=== PATIENT | female | born 1990 | race Caucasian/White ===

== ENCOUNTER 2019-11-07 22:13 | Emergency (ER) | payer OTHER, SELFPAY ==
--- OUTSIDE RECORDS SUMMARY | 2019-11-07 22:18 | XMS REPORT | Continuity of Care Document ---
:1990 Author Organization [facility] t Address [address] [place] [address] Dr. Weldon [address] [place] [id number] Care Team Providers Name Role Phone Unavailable Unavailable Unavailable Problems This patient has no known problems. Allergies, Adverse Reactions, Alerts This patient has no known allergies or adverse reactions. Medications This patient has no known medications. Procedures This patient has no known procedures. Results This patient has no known results.
[2019-11-07] MEDS ORDERED: HYDROCODONE/APAP 10/325 TAB ONE (23:11)
[2019-11-07] MEDS ORDERED: LIDOCAINE 1% MPF 30 ML VIAL ONE (23:12)
--- NOTE | 2019-11-07 23:46 | ER ---
Nurse's Notes [facility] Name: Braden Guy Age: 29 yrs Sex: Female : 1990 Arrival Date: 11/07/2019 Time: 22:22 Bed 13 Private MD: Diagnosis: Cutaneous abscess of right upper limb Presentation: 11/06 22:29 Chief complaint: Patient states: "My arm hurts so bad and is sore to the touch, the jd3 pain is spreading all the way through my vein. Then i got super dizzy, felt like i couldn't see. started about two hours ago. I also went to the feed store and got some antibiotics to try to help heal it. My muscle and everything around it hurts". Coronavirus screen: At this time, the client does not indicate any symptoms associated with coronavirus-19. Ebola Screen: Patient negative for fever greater than or equal to 101.5 degrees Fahrenheit, and additional compatible Ebola Virus Disease symptoms. Initial Sepsis Screen: Does the patient meet any 2 criteria? No. Patient's initial sepsis screen is negative. Does the patient have a suspected source of infection? No. Patient's initial sepsis screen is negative. Risk Assessment: Do you want to hurt yourself or someone else? Patient reports no desire to harm self or others. Onset of symptoms was November 05, 2019. 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 - Social history:: Smoking status: Patient reports the use of cigarette tobacco products, smokes .25 packs per day. Screenin:43 Abuse screen: Denies threats or abuse. Denies injuries from another. Nutritional mg2 screening: No deficits noted. Tuberculosis screening: No symptoms or risk factors identified. Fall Risk None identified. Assessment: 22:43 General: Appears in no apparent distress. comfortable, Behavior is calm, cooperative. mg2 Pain: Complains of pain in right arm. 23:55 Reassessment: Patient and/or family updated on plan of care and expected duration. Pain ea level reassessed. Patient is alert, oriented x 3, equal unlabored respirations, skin warm/dry/pink. Discharge instruction given to patient, verbalized the understanding of instruction. Pt left ED ambulatory, at facility to take pt home. Vital Signs: 22:34 BP 109 / 65; Pulse 95; Resp 12; Temp 98.1; Pulse Ox 100% ; Weight 68.04 kg; Height 5 jd3 ft. 1 in. (154.94 cm); Pain 10/10; 23:57 BP 110 / 68; Pulse 80; Resp 18; Pulse Ox 98% ; ea 22:34 Body Mass Index 28.34 (68.04 kg, 154.94 cm) jd3 ED Course: 22:22 Patient arrived in ED. bg2 22:33 Triage completed. jd3 22:36 Arm band placed on. jd3 22:37 Alex Aquino PA is PHCP. [facility] 22:37 Simon Prieto MD is Attending Physician. [facility] 22:40 Erasmo Regalado RN is Primary Nurse. mg2 23:00 Patient has correct armband on for positive identification. Placed in gown. Bed in low ea position. Call light in reach. Side rails up X 1. 23:42 Assist provider with I \\T\\ D: of an abscess on right arm Set up I\\T\\D tray. Performed by mg 2 Alex GREEN Wound packed. iodoform gauze, Dressing with 4X4s, tape Patient tolerated well. Patient did not have IV access during this emergency room visit. Administered Medications: 23:04 Drug: Rhame 10 mg-325 mg 1 tabs Route: PO; ea 23:50 Follow up: Response: No adverse reaction; Pain is decreased ea 23:34 Drug: Lidocaine (1 %) 20 ml {Note: medication administered by provider .} Volume: 20 ea ml; Route: Infiltration; Outcome: 23:46 Discharge ordered by . [facility] 23:54 Discharged to home ambulatory, with family. ea 23:54 Condition: stable 23:54 Discharge instructions given to patient, Instructed on discharge instructions, follow up and referral plans. medication usage, Demonstrated understanding of instructions, follow-up care, medications, Prescriptions given X 3. 23:56 Patient left the ED. ea Signatures: Alex Aquino PA PA jmm Glass, Brittany 2 Mariana Lopes RN RN Jason Kim RN RN jd3 Erasmo Regalado RN VIDAL mg2
--- NOTE | 2019-11-07 23:46 | EDPHYS ---
Physician Documentation [facility] Name: Braden Guy Age: 29 yrs Sex: Female : 1990 Arrival Date: 11/07/2019 Time: 22:22 Bed 13 Private MD: ED Physician Simon Prieto HPI: 11/06 22:40 This 29 yrs old Female presents to ER via Ambulatory with complaints of jmm Dizziness, Insect Bite. 22:40 The patient presents with an abscess of the right arm. Possible cause(s): insect sting. jmm Associated signs and symptoms: Pertinent negatives: fever. Modifying factors: the symptoms are alleviated by nothing, the symptoms are aggravated by pressure, squeezing the lesion and expressing the contents. This is a 29 year old female with a history of anxiety that presents to the ED with complaints of an area of redness which she noticed yesterday. Swelling worsened today with complaints of weakness and fatigue. . 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 - Social history:: Smoking status: Patient reports the use of cigarette tobacco products, smokes .25 packs per day. ROS: 22:40 Constitutional: Negative for fever, chills, and weight loss, Cardiovascular: Negative jmm for chest pain, palpitations, and edema, Respiratory: Negative for shortness of breath, cough, wheezing, and pleuritic chest pain. 22:40 Skin: Positive for cellulitis, swelling. 22:40 All other systems are negative. Exam: 22:40 Constitutional: This is a well developed, well nourished patient who is awake, alert, jmm and in no acute distress. Head/Face: atraumatic. Eyes: EOMI, no conjunctival erythema appreciated ENT: Moist Mucus Membranes Neck: Trachea midline, Supple Cardiovascular: Regular rate and rhythm. No edema appreciated Respiratory: Normal respirations, no respiratory distress appreciated Abdomen/GI: Non distended, soft Back: Normal ROM 22:40 Skin: erythema and induration noted to the right forearm, TTP, no purulent drainage appreciated. 22:40 Neuro: Motor: is normal. 22:40 Psych: Behavior/mood is pleasant, cooperative. Vital Signs: 22:34 BP 109 / 65; Pulse 95; Resp 12; Temp 98.1; Pulse Ox 100% ; Weight 68.04 kg; Height 5 jd3 ft. 1 in. (154.94 cm); Pain 10/10; 23:57 BP 110 / 68; Pulse 80; Resp 18; Pulse Ox 98% ; ea 22:34 Body Mass Index 28.34 (68.04 kg, 154.94 cm) jd3 Procedures: 23:43 I \T\ D: Incision and drainage was performed for an abscess of the right right arm jmm Prepped with Betadine, Anesthetized with 3 ml's 1% Lidocaine. Incised with #11 blade. Drained small amount purulent fluid. Packed with iodoform gauze, Dressing: sterile 4x4 gauze, the patient tolerated the procedure well. MDM: 22:40 Patient medically screened. [facility] 23:44 Data reviewed: vital signs, nurses notes. Counseling: I had a detailed discussion with jocelyn the patient and/or guardian regarding: the historical points, exam findings, and any diagnostic results supporting the discharge/admit diagnosis, lab results, the need for outpatient follow up, to return to the emergency department if symptoms worsen or persist or if there are any questions or concerns that arise at home. ED course: Patient given wound infection return precautions. Patient understood and agrees with the plan of care. . 11/06 23:32 Order name: Urine Microscopic Only [facility] 11/06 23:32 Order name: Urine Culture [facility] 11/06 23:32 Order name: Urine Dipstick--Ancillary (enter results) [facility] 11/06 23:32 Order name: Urine --Ancillary (enter results) [facility] 11/06 22:49 Order name: Incision \T\ Drainage Setup; Complete Time: 23:30 [facility] 11/06 22:49 Order name: Urine Test (obtain specimen); Complete Time: 23:30 [facility] Administered Medications: 23:04 Drug: [place] 10 mg-325 mg 1 tabs Route: PO; ea 23:50 Follow up: Response: No adverse reaction; Pain is decreased ea 23:34 Drug: Lidocaine (1 %) 20 ml {Note: medication administered by provider .} Volume: 20 ea ml; Route: Infiltration; Disposition: 11/07 00:14 Co-signature as Attending Physician, Simon Prieto MD. rn Disposition: 11/07/19 23:46 Discharged to Home. Impression: Cutaneous abscess of right upper limb. - Condition is Stable. - Discharge Instructions: Skin Abscess, Incision and Drainage, Incision and Drainage, Care After. - Prescriptions for Ultracet 37.5- 325 mg Oral Tablet - take 1 tablet by ORAL route every 6 hours - for up to 5 days; do not exceed 8 tablets per day.; 20 tablet. Doxycycline Hyclate 100 mg Oral Tablet - take 1 tablet by ORAL route every 12 hours; 20 tablet. Bactrim DS 800- 160 mg Oral Tablet - take 1 tablet by ORAL route every 12 hours for 10 days; 20 tablet. - Medication Reconciliation Form, Thank You Letter, Antibiotic Education, Prescription Opioid Use form. - Follow up: Private Physician; When: 2 - 3 days; Reason: Recheck today's complaints, Continuance of care, Re-evaluation by your physician. Signatures: Dispatcher [employer] EDMS Alex Aquino PA PA jmm Nieto, Roman, MD MD rn Antunez, Elena, RN RN ea Davies, Jonathon, RN RN jd3 Corrections: (The following items were deleted from the chart) 11/06 23:56 23:46 11/07/2019 23:46 Discharged to Home. Impression: Cutaneous abscess of right upper ea limb. Condition is Stable. Forms are Medication Reconciliation Form, Thank You Letter, Antibiotic Education, Prescription Opioid Use. Follow up: Private Physician; When: 2 - 3 days; Reason: Recheck today's complaints, Continuance of care, Re-evaluation by your physician. jona
[2019-11-08 00:10] LABS: Urine Blood NEGATIVE (NEG); Urine Glucose NEGATIVE (NEG); Urine Protein NEGATIVE (NEG); Urine Specific Gravity 1.025 (1.005-1.030)
[2019-11-08 00:15] LABS: Urine Amorphous Sediment 1+ /HPF (NONE SEEN); Urine Bacteria >50 /HPF (<20); Urine Culture Reflex Order NOT NEEDED; Urine Mucus 2+ /HPF (NONE SEEN)
== END 2019-11-07 23:56 | disposition home or self-care (01) ==
LOC: ER 22:13
PROC: 0J9D0ZZ Drainage of Right Upper Arm Subcutaneous Tissue and Fascia, Open Approach (ICD-10-PCS; principal; 2019-11-07)
DX: L02.413 Cutaneous abscess of right upper limb (principal); F41.9 Anxiety disorder, unspecified; F17.210 Nicotine dependence, cigarettes, uncomplicated
CPT/HCPCS: 81003; 81015; 81025; 87086; 87088; 99283

== ENCOUNTER 2019-11-09 21:35 | Emergency (ER) | payer SELFPAY ==
--- OUTSIDE RECORDS SUMMARY | 2019-11-09 21:38 | XMS REPORT | Continuity of Care Document ---
:1990 Author Organization [facility] t Address [address] [place] [address] Dr. Weldon [address] [place] [id number] Care Team Providers Name Role Phone Unavailable Unavailable Unavailable Problems This patient has no known problems. Allergies, Adverse Reactions, Alerts This patient has no known allergies or adverse reactions. Medications This patient has no known medications. Procedures This patient has no known procedures. Results This patient has no known results.
[2019-11-09 22:08] LABS: Urine Blood NEGATIVE (NEG); Urine Glucose NEGATIVE (NEG); Urine Protein 1+ (NEG); Urine Specific Gravity >1.030 (1.005-1.030); Urine pH 5.5 (5.0-7.0)
[2019-11-09 23:28] LABS: Absolute Lymphocytes (CBC) 1.9 K/uL (0.7-4.9); Basophils % 0.2 % (0-1.3); Hematocrit 34.1 % (36.0-45.0); Lymphocytes % 20.8 % (15.3-44.8); MPV 8.3 fL (7.6-11.3); RBC Red Blood Cell Count 3.93 M/uL (3.86-4.86)
[2019-11-09] MEDS ORDERED: ONDANSETRON 4 MG/2 ML VIAL ONE (23:28)
[2019-11-09] MEDS ORDERED: MORPHINE 4 MG/ML SYR ONE (23:28)
[2019-11-09 23:50] LABS: Albumin 3.5 g/dL (3.4-5.0); Bilirubin Total 0.6 mg/dL (0.2-1.0); Potassium 3.8 mmol/L (3.5-5.1)
--- NOTE | 2019-11-10 00:14 | ER ---
Nurse's Notes [facility] Name: Braden Guy Age: 29 yrs Sex: Female : 1990 Arrival Date: 11/09/2019 Time: 21:38 Bed 15 Private MD: Diagnosis: Abscess of upper extremity Presentation: 11/08 21:44 Chief complaint: Patient states: Here 2 nights ago with abscess and I\T\D R FA. Site is ll1 getting more swollen, redness is spreading. She is starting to have dizzy, nausea, fatigue. Coronavirus screen: Client denies travel out of the [place] in the last 14 days. At this time, the client does not indicate any symptoms associated with coronavirus-19. Ebola Screen: Patient denies travel to an Ebola-affected area in the 21 days before illness onset. Initial Sepsis Screen: Does the patient meet any 2 criteria? HR > 90 bpm. Risk Assessment: Do you want to hurt yourself or someone else? Patient reports no desire to harm self or others. Onset of symptoms was November 05, 2019. 21:44 Method Of Arrival: Ambulatory 1 21:44 Acuity: JESÚS 3 ll1 21:50 Initial Sepsis Screen: Does the patient have a suspected source of infection? Yes: Skin vc breakdown/wound. Triage Assessment: 21:50 General: Appears in no apparent distress. uncomfortable, Behavior is calm, cooperative, vc appropriate for age. Pain: Complains of pain in palmar aspect of right forearm Pain does not radiate. Pain currently is 8 out of 10 on a pain scale. Quality of pain is described as pressure, squeezing, Pain began gradually, Is continuous, Alleviated by cold application. Historical: - Allergies: 21:47 No Known Allergies; ll1 - PMHx: 21:47 Anxiety; ll1 - PSHx: 21:47 None; ll1 - Immunization history:: Flu vaccine is up to date. - Social history:: Smoking status: Patient reports the use of cigarette tobacco products, smokes one-half pack cigarettes per day, Patient/guardian denies using alcohol, street drugs. Screenin:50 Abuse screen: Denies threats or abuse. Abuse screen: Denies threats or abuse. vc Nutritional screening: No deficits noted. Tuberculosis screening: No symptoms or risk factors identified. Fall Risk None identified. Assessment: 22:00 General: Appears in no apparent distress. uncomfortable, Behavior is calm, cooperative, vc appropriate for age. Pain: Complains of pain in palmar aspect of right forearm Pain does not radiate. Pain currently is 8 out of 10 on a pain scale. Quality of pain is described as pressure, stabbing, Pain began gradually, Is continuous, Alleviated by. Neuro: Level of Consciousness is awake, alert, obeys commands, Oriented to person, place, time, situation, Appropriate for age. Cardiovascular: Clubbing of nail beds is absent Patient's skin is warm and dry. Respiratory: Airway is patent Respiratory effort is even, unlabored, Respiratory pattern is regular, symmetrical. GI: No signs and/or symptoms were reported involving the gastrointestinal system. : No signs and/or symptoms were reported regarding the genitourinary system. Derm: Skin is intact, is healthy with good turgor, Skin temperature is warm. 23:00 Reassessment: Patient appears in no apparent distress at this time. Patient and/or vc family updated on plan of care and expected duration. Pain level reassessed. Patient is alert, oriented x 3, equal unlabored respirations, skin warm/dry/pink. 11/09 00:02 Reassessment: Patient appears in no apparent distress at this time. Patient and/or vc family updated on plan of care and expected duration. Pain level reassessed. Patient is alert, oriented x 3, equal unlabored respirations, skin warm/dry/pink. Patient states symptoms have improved. Vital Signs: 11/08 21:44 BP 111 / 78; Pulse 98; Resp 18; Temp 98.2; Pulse Ox 97% ; Weight 68.04 kg; Height 5 ft. ll1 1 in. (154.94 cm); Pain 10/10; 23:00 BP 93 / 60; Pulse 90; Resp 17; Pulse Ox 100% on R/A; vc 11/09 00:00 BP 95 / 62; Pulse 91; Resp 18; Pulse Ox 99% on R/A; vc 11/08 21:44 Body Mass Index 28.34 (68.04 kg, 154.94 cm) ll1 ED Course: 11/07 23:05 Inserted saline lock: 22 gauge in right antecubital area, using aseptic technique. vc Blood collected. 11/08 21:38 Patient arrived in ED. bp1 21:42 Mickail, Alex, PA is PHCP. jmm 21:42 Dedrick Gonzalez MD is Attending Physician. jm 21:46 Triage completed. ll1 21:47 Arm band placed on Patient placed in an exam room, on a stretcher. ll1 21:50 Patient has correct armband on for positive identification. Pulse ox on. NIBP on. vc 21:50 Assist provider with I \T\ D: of an abscess on right forearm Set up I\T\D tray. Performed vc by Alex GREEN Culture sent to lab. Patient tolerated well. 22:45 Sanaz Bartlett RN is Primary Nurse. vc 11/09 00:32 IV discontinued, intact, bleeding controlled, No redness/swelling at site. Pressure vc dressing applied. Administered Medications: 11/08 23:20 Drug: morphine 4 mg Route: IVP; Site: right antecubital; vc 11/09 00:35 Follow up: Response: No adverse reaction vc 11/08 23:20 Drug: Zofran (Ondansetron) 4 mg Route: IVP; Site: right antecubital; vc 11/09 00:34 Follow up: Response: No adverse reaction vc 00:18 Drug: Bactrim (160 mg-800 mg (DS) 1 tablet Route: PO; vc 00:34 Follow up: Response: No adverse reaction vc 00:18 Drug: Doxycycline 100 mg Route: PO; vc 00:34 Follow up: Response: No adverse reaction vc 00:19 Drug: [place] 10 mg-325 mg 1 tabs Route: PO; vc 00:34 Follow up: Response: No adverse reaction vc Outcome: 00:14 Discharge ordered by . [facility] 00:32 Discharged to home ambulatory. vc 00:32 Condition: good 00:32 Discharge instructions given to patient, Instructed on discharge instructions, follow up and referral plans. no drinking with medication, no driving heavy equipment, medication usage, Demonstrated understanding of instructions, follow-up care, medications, wound care, Prescriptions given X 1. 00:35 Patient left the ED. vc Addendum: 11/13/2019 07:43 Addendum: Culture Results: Positive wound culture. No further action required. Bacteria s s sensitive to prescribed antibiotic. Signatures: Alex Aquino PA PA jmm Smirch, Shelby, RN RN ss Sanaz Bartlett, RN RN vc Keya Hall, RN RN ll1 Leigh Yoo bp1
--- NOTE | 2019-11-10 00:14 | EDPHYS ---
Physician Documentation [facility] Name: Braden Guy Age: 29 yrs Sex: Female : 1990 Arrival Date: 11/09/2019 Time: 21:38 Bed 15 Private MD: ED Physician Dedrick Gonzalez HPI: 11/08 22:04 This 29 yrs old Female presents to ER via Ambulatory with complaints of Arm jmm Pain. 22:04 The patient or guardian complains of pain, swelling. Onset: The symptoms/episode jmm began/occurred gradually, 2 day(s) ago. Modifying factors: The symptoms are alleviated by nothing. the symptoms are aggravated by nothing. This is a 29 year old female with a history of anxiety that presents to the ED with complaints of right forearm swelling. 2 days s/p I and D in the ED. Complains of increased swelling. Began abx 2 days ago. Also admits to fever. . Historical: - Allergies: 21:47 No Known Allergies; ll1 - PMHx: 21:47 Anxiety; ll1 - PSHx: 21:47 None; ll1 - Immunization history:: Flu vaccine is up to date. - Social history:: Smoking status: Patient reports the use of cigarette tobacco products, smokes one-half pack cigarettes per day, Patient/guardian denies using alcohol, street drugs. ROS: 22:04 Constitutional: Negative for fever, chills, and weight loss, Cardiovascular: Negative jmm for chest pain, palpitations, and edema, Respiratory: Negative for shortness of breath, cough, wheezing, and pleuritic chest pain. 22:04 Skin: Positive for swelling. 22:04 All other systems are negative. Exam: 22:04 Constitutional: This is a well developed, well nourished patient who is awake, alert, jmm and in no acute distress. Head/Face: atraumatic. Eyes: EOMI, no conjunctival erythema appreciated ENT: Moist Mucus Membranes Neck: Trachea midline, Supple Chest/axilla: Normal chest wall appearance and motion. Cardiovascular: Regular rate and rhythm. No edema appreciated Respiratory: Normal respirations, no respiratory distress appreciated Abdomen/GI: Non distended, soft Back: Normal ROM 22:04 Skin: induration noted ot the right forearm, ttp, purulent drainage noted. 22:04 Neuro: Motor: is normal. 22:04 Psych: Behavior/mood is pleasant, cooperative. Vital Signs: 21:44 BP 111 / 78; Pulse 98; Resp 18; Temp 98.2; Pulse Ox 97% ; Weight 68.04 kg; Height 5 ft. ll1 1 in. (154.94 cm); Pain 10/10; 23:00 BP 93 / 60; Pulse 90; Resp 17; Pulse Ox 100% on R/A; vc 11/09 00:00 BP 95 / 62; Pulse 91; Resp 18; Pulse Ox 99% on R/A; vc 11/08 21:44 Body Mass Index 28.34 (68.04 kg, 154.94 cm) ll1 Procedures: 11/08 23:56 I \T\ D: Incision and drainage was performed for an abscess of the right right arm [facility] Prepped with Betadine, Anesthetized with 5 ml's 1% Lidocaine. Incised with #11 blade. Drained small amount purulent fluid. Loculations removed. Packed with iodoform gauze, Dressing: sterile 4x4 gauze, the patient tolerated the procedure well. MDM: 21:54 Patient medically screened. [facility] 11/09 00:06 Data reviewed: vital signs, nurses notes. Counseling: I had a detailed discussion with [facility] the patient and/or guardian regarding: the historical points, exam findings, and any diagnostic results supporting the discharge/admit diagnosis, lab results, the need for outpatient follow up, to return to the emergency department if symptoms worsen or persist or if there are any questions or concerns that arise at home. ED course: Patient pulled out packing the same day as her I and D two days prior. The wound was packed again. Labs unremarkable. Patient is advised to follow up with gen surgery or return to the ED if symptoms worsen. Patient understood and agrees with the plan of care. . 11/08 21:59 Order name: Wound Culture [facility] 11/08 21:59 Order name: Blood Culture Adult (2) [facility] 11/08 21:59 Order name: Procalcitonin; Complete Time: 00:03 [facility] 11/08 21:59 Order name: Lactate; Complete Time: 23:55 [facility] 11/08 21:59 Order name: CBC with Diff; Complete Time: 23:33 [facility] 11/08 21:59 Order name: CMP; Complete Time: 23:55 [facility] 11/08 21:59 Order name: Saline Lock; Complete Time: 23:34 [facility] 11/08 22:03 Order name: Urine --Ancillary (enter results); Complete Time: 22:26 tt 11/08 22:03 Order name: Urine Dipstick--Ancillary (enter results); Complete Time: 22:26 tt3 11/08 21:59 Order name: Urine Dipstick-Ancillary (obtain specimen); Complete Time: 22:21 [facility] 11/08 21:59 Order name: Urine Test (obtain specimen); Complete Time: 22:21 [facility] Administered Medications: 11/08 23:20 Drug: morphine 4 mg Route: IVP; Site: right antecubital; vc 11/09 00:35 Follow up: Response: No adverse reaction vc 11/08 23:20 Drug: Zofran (Ondansetron) 4 mg Route: IVP; Site: right antecubital; vc 11/09 00:34 Follow up: Response: No adverse reaction vc 00:18 Drug: Bactrim (160 mg-800 mg (DS) 1 tablet Route: PO; vc 00:34 Follow up: Response: No adverse reaction vc 00:18 Drug: Doxycycline 100 mg Route: PO; vc 00:34 Follow up: Response: No adverse reaction vc 00:19 Drug: [place] 10 mg-325 mg 1 tabs Route: PO; vc 00:34 Follow up: Response: No adverse reaction vc Disposition: 19:53 Co-signature as Attending Physician, Dedrick Gonzalez MD I agree with the assessment and tw4 plan of care. Disposition: 11/10/19 00:14 Discharged to Home. Impression: Abscess of upper extremity. - Condition is Stable. - Discharge Instructions: Incision and Drainage, Care After. - Prescriptions for Tylenol- Codeine #3 300-30 mg Oral Tablet - take 1 tablet by ORAL route every 6 hours As needed; 6 tablet. - Medication Reconciliation Form, Thank You Letter, Antibiotic Education, Prescription Opioid Use form. - Follow up: Private Physician; When: 2 - 3 days; Reason: Recheck today's complaints, Continuance of care, Re-evaluation by your physician. Signatures: Dispatcher [employer] EDAlex Robertson PA PA jmm Wadley, Terrence, MD MD tw4 Sanaz Bartlett, RN RN Kyea De Los Santos RN RN ll1 Corrections: (The following items were deleted from the chart) 00:35 00:14 11/10/2019 00:14 Discharged to Home. Impression: Abscess of upper extremity. vc Condition is Stable. Forms are Medication Reconciliation Form, Thank You Letter, Antibiotic Education, Prescription Opioid Use. Follow up: Private Physician; When: 2 - 3 days; Reason: Recheck today's complaints, Continuance of care, Re-evaluation by your physician. jona
[2019-11-10] MEDS ORDERED: DOXYCYCLINE 100 MG CAP PO ONE (00:25)
[2019-11-10] MEDS ORDERED: HYDROCODONE/APAP 10/325 TAB ONE (00:25)
[2019-11-10] MEDS ORDERED: SMZ./TMP. 800/160 MG TABLET ONE (00:25)
[2019-11-14 09:11] VITALS: TEMP 98.2
[2019-11-14 09:13] VITALS: BP 95/62; O2SAT 99
== END 2019-11-10 00:35 | disposition home or self-care (01) ==
LOC: ER 21:35
PROC: 0J9D0ZZ Drainage of Right Upper Arm Subcutaneous Tissue and Fascia, Open Approach (ICD-10-PCS; principal; 2019-11-10)
DX: L02.413 Cutaneous abscess of right upper limb (principal)
CPT/HCPCS: 36415; 80053; 81003; 81025; 83605; 84145; 85025; 87040; 87070; 87077; 87186; 87205; 96374; 96375; 99284; J2405